=== PATIENT | male | born 1980 | race African-American/Black ===

== ENCOUNTER 2021-04-09 03:49 | Emergency (ER) | payer MEDICAID ==
[~2021-04-09] VITALS: Ht 188 cm; Wt 71.0 kg
[2021-04-09] MEDS ORDERED: HYDROCODONE/ACETAMINOPHEN 5/325MG TABLET PO ONE (05:00)
[2021-04-09] MEDS ORDERED: T3 PO (06:02)
[2021-04-09 06:25] VITALS: BP 128/76
== END 2021-04-09 06:33 | disposition home or self-care (01) ==
LOC: ER 03:49
DX: S02.2XXA Fracture of nasal bones, initial encounter for closed fracture (principal); S06.890A Other specified intracranial injury without loss of consciousness, initial encounter; S00.12XA Contusion of left eyelid and periocular area, initial encounter; S00.11XA Contusion of right eyelid and periocular area, initial encounter; F17.210 Nicotine dependence, cigarettes, uncomplicated; Y04.0XXA Assault by unarmed brawl or fight, initial encounter; Y93.89 Activity, other specified; Y92.481 Parking lot as the place of occurrence of the external cause; Y99.8 Other external cause status
CPT/HCPCS: 70486; 99285

== ENCOUNTER 2025-03-27 07:07 | Emergency (ER) | payer MEDICAID, OTHER ==
[~2025-03-27] VITALS: Ht 188 cm; Wt 72.0 kg
[~2025-03-27 07:07] MED LIST: T3 PO
[2025-03-27 07:09] VITALS: O2SAT 99
[2025-03-27 07:34] LABS: BASOPHILS % 0.4 % (0.0-2.0); EOSINOPHILS % 0.1 % (0.0-5.0); HEMATOCRIT. 45.9 % (42.0-52.0); HEMOGLOBIN. 15.5 g/dL (14.0-18.0); LYMPHOCYTES % 13.7 % (20.0-50.0); MEAN PLATELET VOLUME 9.2 fl (7.4-10.4); MONOCYTES % 7.0 % (2.0-8.0); NEUTROPHILS % 78.8 % (40.0-76.0); PLATELET 155 x1000/uL (130-400); RED BLOOD CELL COUNT 4.83 mill/uL (4.7-6.1); RED CELL DISTRIBUTION WIDTH 13.2 % (11.6-14.6)
[2025-03-27] MEDS: SUCRALFATE 1G TABLET PO SCH (07:46)
[2025-03-27 07:47] LABS: CREATININE 1.1 mg/dL (0.6-1.3); UREA NITROGEN BLOOD 10 mg/dL (9-23)
[2025-03-27] MEDS: FAMOTIDINE 20MG TABLET PO ONE (08:10)
[2025-03-27] MEDS: MAGNESIUM/ALUMINUM HYDROXIDE/SIMETHICONE 30ML UDC PO ONE (08:10)
[2025-03-27] MEDS: ONDANSETRON 4MG ODT PO ONE (08:11)
[2025-03-27 08:52] LABS: ASPARTATE AMINOTRANSFERASE 16 IU/L (<34); BILIRUBIN DIRECT 0.4 mg/dL (<=3.0); BILIRUBIN TOTAL 1.3 mg/dL (0.1-1.0); PROTEIN TOTAL 7.0 g/dL (6.0-8.3)
[2025-03-27] MEDS ORDERED: ONDA-239 PO (10:26)
[2025-03-27] MEDS ORDERED: FAMO-134 MT (10:26)
[2025-03-27 10:45] VITALS: BP 130/88; PULSE 54; RESP 18; TEMP 37.1; O2SAT 100
[2025-03-27 11:54] LABS: CLARITY URINE CLEAR (CLEAR); COLOR URINE YELLOW (YELLOW); GLUCOSE URINE NEGATIVE (NEGATIVE); KETONES URINE 2+ (NEGATIVE); LEUKOCYTE ESTERASE URINE 1+ (NEGATIVE); NITRITE URINE NEGATIVE (NEGATIVE); OCCULT BLOOD URINE NEGATIVE (NEGATIVE); PH URINE 6.5 (4.5-8.0); PROTEIN URINE NEGATIVE (NEGATIVE); SPECIFIC GRAVITY URINE 1.013 (1.005-1.030); UROBILINOGEN URINE 0.2 E.U./dL (0.2-1.0)
[2025-03-27 12:24] LABS: RBC URINE 0-2 /hpf (0-2)
[2025-03-27 12:25] LABS: BACTERIA URINE 2+; SQUAMOUS EPITHELIAL CELL URINE 2+ /lpf (RARE/1+); YEAST URINE NONE SEEN
== END 2025-03-27 11:08 | disposition home or self-care (01) ==
LOC: ER 07:07
DX: R10.13 Epigastric pain (principal); R11.2 Nausea with vomiting, unspecified; I25.2 Old myocardial infarction
CPT/HCPCS: 99284; 76705; 80076; 80048; 81003; 83690; 85025; 87086; 36415; 93005; Q0162